=== PATIENT | male | born 1995 | race Caucasian/White ===

== ENCOUNTER 2017-02-09 11:48 | Emergency (ER) | payer SELFPAY ==
[2017-02-09 12:01] VITALS: BP 132/85; PULSE 93; TEMP 97.5; BMI 21.2
--- NOTE | 2017-02-09 12:39 | PDOC ---
History of Present Illness - General Chief Complaint: Edema Stated Complaint: SWOLLEN FACE Time Seen by Provider: 02/09/17 12:27 History Source: Patient Exam Limitations: No Limitations - History of Present Illness Initial Comments: 02/09/17 12:45 Onset of swelling to face and left jaw 2 days. States is tender, and concerned about a dental abscess. States had similar problem last year and needed incision and drainage. States has wisdom teeth erupting and is uncertain as to any dental decay or cracking. Denies fever, denies any purulent drainage. Has used ibuprofen with minimal resolved. Timing/Duration: reports: just prior to arrival Severity: Yes: mild Location: reports: face Past History - Travel Traveled outside of the country in the last 30 days: No Close contact w/someone who was outside of country & ill: No - Past Medical History Allergies/Adverse Reactions: Allergies Allergy/AdvReac Type Severity Reaction Status Date / Time Penicillins Allergy Verified 02/09/17 11:50 Home Medications: Ambulatory Orders Clindamycin [Cleocin -] 300 mg PO TID #21 capsule 02/09/17 COPD: No DVT: No Dementia: No Diabetes: No - Immunization History Immunization Up to Date: Yes - Suicide/Smoking/Psychosocial Hx Smoking History: Never smoked Number of Cigarettes Smoked Daily: 10 Information on smoking cessation initiated: No Hx Alcohol Use: No Drug/Substance Use Hx: No Substance Use Type: None Review of Systems - Review of Systems Able to Perform ROS?: Yes Is the patient limited Azeri proficient: Yes Constitutional: Yes: Symptoms Reported, See HPI, Malaise. No: Fever HEENTM: Yes: Symptoms Reported, See HPI, Mouth Pain (left lower ) Respiratory: Yes: See HPI. No: Symptoms reported, Cough Musculoskeletal: Yes: Symptoms Reported Integumentary: Yes: Symptoms Reported All Other Systems: Reviewed and Negative *Physical Exam - Vital Signs Last Vital Signs Temp Pulse Resp BP Pulse Ox 97.5 F L 93 H 16 132/85 98 02/09/17 11:50 02/09/17 11:50 02/09/17 11:50 02/09/17 11:50 02/09/17 11:50 - Physical Exam General Appearance: Yes: Nourished, Appropriately Dressed, Apparent Distress HEENT: positive: AMBERLY, Normal ENT Inspection, TMs Normal, Pharynx Normal, Other (protruding and swollen left lower wisdom tooth, no abscess fluctuance or dental decay noted.) Neck: positive: Tender, Supple, Lymphadenopathy (R), Lymphadenopathy (L) ( tender submandibular ) Respiratory/Chest: positive: Lungs Clear, Normal Breath Sounds Cardiovascular: positive: Regular Rate Gastrointestinal/Abdominal: positive: Soft Extremity: positive: Normal Capillary Refill Integumentary: positive: Normal Color, Dry, Warm, Pale Neurologic: positive: beauty advisor II-XII NML intact, Fully Oriented, Alert, Normal Mood/ Affect, Normal Response, Motor Strength 07/19 Medical Decision Making - Medical Decision Making 02/09/17 12:57 [place] tooth pain with inflammation, will start on clindamycin and patient to see dentist on Friday. *DC/Admit/Observation/Transfer Diagnosis at time of Disposition: Tooth ache - Discharge Dispostion Disposition: HOME Condition at time of disposition: Stable Admit: No - Referrals - Patient Instructions Printed Discharge Instructions: DI for Dental Pain Additional Instructions: Rest, drink lots of fluids: Teas, water, soups Saltwater gargles/ keep mouth clean and rinse after each meal May use wet teabag for pain relief to area Avoid hard chewing foods, stick to ice cream, Jell-O, yogurt etc. Tylenol or Motrin for fever and pain Complete all medication as prescribed Seek dental appointment as soon as possible for evaluation of dental injury/pain Clindamycin 300 mg tablet every 8 hours for one week Followup with private physician in one to 2 days as needed Return to emergency department for worsened symptoms, fevers, swelling to face or worsened pain - Post Discharge Activity Forms/Work/School Notes: Back to Work
[2017-02-09] MEDS ORDERED: KETOROLAC TROMETHAMINE 60 MG/2 ML VIAL IM ONE (12:40)
[2017-02-09] MEDS ORDERED: KETOROLAC TROMETHAMINE 60 MG/2 ML VIAL ONE (12:44)
== END 2017-02-09 13:01 | disposition home or self-care (01) ==
LOC: JERFT 11:48
PROC: 3E0233Z Introduction of Anti-inflammatory into Muscle, Percutaneous Approach (ICD-10-PCS; principal; 2017-02-09)
DX: K08.89 Other specified disorders of teeth and supporting structures (principal)
CPT/HCPCS: 99281-25

== ENCOUNTER 2017-03-22 10:11 | Emergency (ER) | payer SELFPAY ==
[2017-03-22 10:23] VITALS: TEMP 98.4; BMI 20.5
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
[2017-03-22] MEDS ORDERED: KETOROLAC TROMETHAMINE 30 MG/1 ML VIAL IM ONE (11:20)
[2017-03-22] MEDS ORDERED: diazePAM 5 MG TABLET PO ONE (11:20)
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
[2017-03-22] MEDS ORDERED: diazePAM 5 MG TABLET ONE (11:47)
[2017-03-22] MEDS ORDERED: KETOROLAC TROMETHAMINE 30 MG/1 ML VIAL ONE (11:47)
[2017-03-22 13:16] VITALS: BP 120/70; PULSE 66
== END 2017-03-22 12:55 | disposition home or self-care (01) ==
LOC: JERFT 10:11 → JER 10:11
PROC: 3E0233Z Introduction of Anti-inflammatory into Muscle, Percutaneous Approach (ICD-10-PCS; principal; 2017-03-22)
DX: S39.012A Strain of muscle, fascia and tendon of lower back, initial encounter (principal); X50.0XXA Overexertion from strenuous movement or load, initial encounter; Y92.69 Other specified industrial and construction area as the place of occurrence of the external cause; Y99.0 Civilian activity done for income or pay
CPT/HCPCS: 99282-25